=== PATIENT | male | born 1965 | race Two or more races ===

== ENCOUNTER 2017-07-31 14:08 | Inpatient (IN) | payer MEDICAID, OTHER ==
--- NOTE | 2017-07-31 14:24 | EDPHY ---
H & P Stated Complaint: Hypotensive/diabetic Time Seen by Provider: 07/31/17 14:23 HPI/ROS: CHIEF COMPLAINT: Low blood pressure HISTORY OF PRESENT ILLNESS: The patient presents to the emergency department with complaints of low blood pressure for the past several weeks. The patient has a history of hypertension and has been taking lisinopril. The patient also has history of diabetes. He is on metformin and glipizide. The patient complains of vague generalized abdominal pain and anterior chest pain. He states the pain is worsened with palpation. The patient denies fever, cough or congestion. The patient denies any headache, numbness or weakness. REVIEW OF SYSTEMS: A comprehensive 10 point review of systems is otherwise negative aside from elements mentioned in the history of present illness. Source: Patient, Family - Personal History Current Tetanus Diphtheria and Acellular Pertussis (TDAP): Yes - Medical/Surgical History Hx Asthma: No Hx Chronic Respiratory Disease: No Hx Diabetes: Yes Hx Cardiac Disease: No Hx Renal Disease: No Hx Cirrhosis: No Hx Alcoholism: No Hx HIV/AIDS: No Hx Splenectomy or Spleen Trauma: No Other PMH: diabetic - Social History Smoking Status: Current every day smoker - Physical Exam Exam: General Appearance: Alert, no distress Eyes: Pupils equal and round no pallor or injection ENT, Mouth: Dry mucous membranes Respiratory: There are no retractions, lungs are clear to auscultation, tenderness to palpation anterior chest wall predominantly over the costochondral area Cardiovascular: Regular rate and rhythm Gastrointestinal: Abdomen is soft and nontender, no masses, bowel sounds normal Neurological: A&O, normal motor function, normal sensory exam, normal cranial nerves Skin: Warm and dry, no rashes Musculoskeletal: Neck is supple nontender Extremities: symmetrical, full range of motion Constitutional: Initial Vital Signs Temperature (C) 36.4 C 07/31/17 14:10 Heart Rate 106 H 07/31/17 14:10 Respiratory Rate 18 07/31/17 14:10 Blood Pressure 82/58 L 07/31/17 14:10 O2 Sat (%) 94 07/31/17 14:10 O2 Delivery Mode Room Air Allergies/Adverse Reactions: No Known Allergies Allergy (Verified 07/31/17 14:09) Home Medications: Medication Instructions Recorded Lisinopril [Zestril 10 mg (RX)] 10 mg PO DAILY 04/28/12 Magnesium Cit Solution Prepack 1 btl TAKEHOME ONCE #0 btl 04/28/12 Pantoprazole Sodium [Protonix 40mg 40 mg PO DAILY #30 tab 04/28/12 (RX)] glipiZIDE XL [Glucotrol XL 10 MG 10 mg PO DAILY 04/28/12 (RX)] metFORMIN SR [Glucophage XR 500 mg 500 mg PO DAILY@1800 04/28/12 (RX)] Medical Decision Making - Diagnostics EKG Interpretation: EKG: Complete interpretation has been separately recorded in the [facility] archive. Summary impression: Sinus rhythm, rate 96 Imaging Results: Imaging Impressions Chest X-Ray 07/31/17 14:46 Impression: No acute pulmonary disease. ED Course/Re-evaluation: I spoke with Dc. They report his last creatinine was 1.6 on 06/03/17 and he has been on 2.5 mg of lisinopril for sometime. The patient was noted to have no evidence of urinary retention on bladder scanning. The patient had an IV established. He received 1 L of normal saline. Renal ultrasound has been ordered. The patient will be admitted to the hospital. He has no evidence of hyperkalemia. Consultation is made with Dr. Kaplan from the hospitalist service. Discussion: The patient presents to the ED with low blood pressure and elevated creatinine in the setting of ELIN-inhibitor use. The patient is afebrile, nontoxic and well-appearing. The patient's blood pressure did improve with IV fluids. It is currently 116/78 at 4:00 p.m.. The patient will be admitted to the hospital for further evaluation and management. He has no evidence of hyperkalemia or arrhythmia. Differential Diagnosis: Differential diagnosis considered includes renal failure, hyperkalemia, dehydration, metabolic abnormality - Data Points Laboratory Results: Laboratory Results 07/31/17 14:40 07/31/17 14:40 07/31/17 07/31/17 07/31/17 14:45 14:40 14:40 WBC 10.34 10^3/uL H 10^3/uL (3.80-9.50) RBC 5.10 10^6/uL 10^6/uL (4.40-6.38) Hgb 16.3 g/dL g/dL (13.7-17.5) Hct 45.9 % % (40.0-51.0) MCV 90.0 fL fL (81.5-99.8) MCH 32.0 pg pg (27.9-34.1) MCHC 35.5 g/dL g/dL (32.4-36.7) RDW 13.3 % % (11.5-15.2) Plt Count 305 10^3/uL 10^3/uL (150-400) MPV 9.7 fL fL (8.7-11.7) Neut % (Auto) 65.3 % % (39.3-74.2) Lymph % (Auto) 25.3 % % (15.0-45.0) Morris % (Auto) 7.3 % % (4.5-13.0) Eos % (Auto) 0.9 % % (0.6-7.6) Baso % (Auto) 0.7 % % (0.3-1.7) Nucleat RBC Rel Count 0.0 % % (0.0-0.2) Absolute Neuts (auto) 6.76 10^3/uL H 10^3/uL (1.70-6.50) Absolute Lymphs (auto) 2.62 10^3/uL 10^3/uL (1.00-3.00) Absolute Monos (auto) 0.75 10^3/uL 10^3/uL (0.30-0.80) Absolute Eos (auto) 0.09 10^3/uL 10^3/uL (0.03-0.40) Absolute Basos (auto) 0.07 10^3/uL 10^3/uL (0.02-0.10) Absolute Nucleated RBC 0.00 10^3/uL 10^3/uL (0-0.01) Immature Gran % 0.5 % % (0.0-1.1) Immature Gran # 0.05 10^3/uL 10^3/uL (0.00-0.10) Sodium 142 mEq/L mEq/L (135-145) Potassium 4.3 mEq/L mEq/L (3.3-5.0) Chloride 96 mEq/L L mEq/L (97-110) Carbon Dioxide 28 mEq/l mEq/l (22-31) Anion Gap 18 mEq/L H mEq/L (8-16) BUN 50 mg/dL H mg/dL (7-23) Creatinine 3.6 mg/dL H mg/dL (0.7-1.3) Estimated GFR 18 Glucose 76 mg/dL mg/dL (70-100) POC Glucose 69 mg/dL L mg/dL (70-100) Calcium 9.6 mg/dL mg/dL (8.5-10.4) Total Bilirubin 0.7 mg/dL mg/dL (0.1-1.4) Conjugated Bilirubin 0.5 mg/dL mg/dL (0.0-0.5) Unconjugated Bilirubin 0.2 mg/dL mg/dL (0.0-1.1) AST 16 IU/L L IU/L (17-59) ALT 26 IU/L IU/L (21-72) Alkaline Phosphatase 79 IU/L IU/L (38-126) Troponin I < 0.012 ng/mL ng/mL (0.000-0.034) Total Protein 7.4 g/dL g/dL (6.3-8.2) Albumin 4.4 g/dL g/dL (3.5-5.0) Lipase 530 IU/L H IU/L (23-300) Medications Given: Discontinued Medications Sodium Chloride (Ns) 1,000 mls @ 0 mls/hr IV ONCE ONE PRN Reason: Wide Open Stop: 07/31/17 14:51 Last Admin: 07/31/17 14:51 Dose: 1,000 mls Point of Care Test Results: 07/31/17 14:45 POC Glucose 69 L Departure - Departure Disposition: [facility] Inpatient Acute Clinical Impression: Acute renal failure Condition: Good Referrals: Rishi Munguia MD [Primary Care Provider] - As per Instructions
--- NOTE | 2017-07-31 14:43 | CPEKG ---
Heart Rate: 96 RR Interval: 625 P-R Interval: 116 QRSD Interval: 88 QT Interval: 348 QTC Interval: 440 P [place]: 51 QRS [place]: 51 T Wave [place]: 34 EKG Severity - NORMAL ECG - EKG Impression: SINUS RHYTHM Electronically Signed By: Dain Kumari 31-Jul-2017 14:57:17
[2017-07-31] MEDS ORDERED: NS 1,000 ML IV ONE (14:50)
[2017-07-31 14:52] LABS: PLATELET COUNT 305 10^3/uL (150-400)
[2017-07-31] MEDS ORDERED: ACETAMINOPHEN 325 MG TAB PO PRN (17:02)
[2017-07-31] MEDS: NS 1,000 ML IV SCH (17:36)
[2017-07-31] MEDS ORDERED: D50W 25 GM/50 ML SYR IVP PRN (17:48)
--- NOTE | 2017-07-31 18:18 | GHP ---
[f rep st] HISTORY AND PHYSICAL DATE OF ADMISSION: 07/31/2017 PRIMARY CARE PROVIDER: [facility]. CHIEF COMPLAINT: Low blood pressures and lightheadedness. HISTORY OF PRESENT ILLNESS: The patient is a pleasant 52-year-old gentleman with a past medical hist ory of diabetes mellitus type 2, who [facility] by one of his coworkers after showed up to work today and was unsteady and complaining of lightheaded ness. Upon arrival to the emergency room, his blood pressure reading was 82/58, and his blood work w as notable for elevated creatinine at 3.6. Dr. Kumari in the emergency room made contact with the [facility] and they had stated that his creatinine was recently measured at 1.4. It sounds like donna maya had some elevated creatinines in the past in the mid 2 range. He is not under the care of a nephro logist at the current time. The patient states he has had intermittent symptoms like today throughou t the years, but he says over the past 2-3 weeks has been fairly persistent. I am not entirely sure if the lisinopril that he takes on a daily basis is for hypertension or possibly related for protecti ve effects on the kidneys. It does sound like the dose has been gradually decreased over the prior m onths due to his complaints of lightheadedness. Otherwise, no complaints of chest pain or difficulty breathing. PAST MEDICAL HISTORY: Diabetes mellitus type 2, uncertain control. PAST SURGICAL HISTORY: Appendectomy. MEDICATIONS: 1. Metformin XR 500 mg daily. 2. Glipizide XL 10 mg daily. 3. Lisinopril 10 mg daily, but it sounds that this has been decreased to 2.5 mg daily of recent. 4. Pantoprazole 40 mg daily. ALLERGIES: No known drug allergies. FAMILY HISTORY: Father . He in a motor vehicle accident. Mother is currently living. SOCIAL HISTORY: The patient is . He has 4 children. He is a current smoker and declines a nicotine patch at this time. He typically has 2-3 beers in the evening time after work. Contact per son or [id number] would be his daughter, who is present at the bedside today. REVIEW OF SYSTEMS: CONSTITUTIONAL: No complaints of any fevers or chills. ENT: No recent upper re spiratory illnesses. CARDIOVASCULAR: No complaints of any chest pains, palpitations, or syncopal ep isodes. RESPIRATORY: No complaints of shortness of breath or productive cough. GI: No complaints of abdominal pains, nausea, vomiting, diarrhea, or constipation. : The patient states he typicall y urinates about once a day. He typically does not need to urinate at all throughout the nighttime. NEUROLOGIC: No complaints of any headaches or focal weakness. HEMATOLOGIC: No deep vein thrombosi s or pulmonary embolism history. PSYCHIATRIC: No history of anxiety or depression. ENDOCRINE: No history of polyuria or heat intolerance. SKIN: No new skin rashes. MUSCULOSKELETAL: No focal join t pains. PHYSICAL EXAM: VITAL SIGNS: Temperature 36.7, blood pressure 82/58, heart rate 106, respirations 18 , saturating 96% on room air. GENERAL: Patient appears comfortable. He is awake, alert, conversant , in no acute distress. HEENT: Extraocular movements appear intact. No scleral icterus is noted. NECK: Supple. No thyroid enlargement noted. CHEST: Clear to auscultation with normal respiratory effort. HEART: Regular rate and rhythm. No murmurs noted. ABDOMEN: Soft, nontender, nondistended . : No Schroeder catheter in place. EXTREMITIES: No significant pitting edema. NEUROLOGIC: Crania l nerves 2-12 appear grossly intact with 5/5 strength in all extremities. LABS: White blood cell count is 10, hemoglobin 16, platelets 305. Sodium 142, potassium 4.3, chlori de 96, bicarb 28, BUN 50, creatinine 3.6, glucose 76, AST 16, ALT 26, alkaline phosphatase 79, biliru bin is 0.7. Troponin less than 0.012. Lipase 530. Total protein is 7.4. IMAGIN. Chest x-ray: No acute cardiopulmonary disease. 2. Abdominal ultrasound: No hydronephrosis seen. No renal atrophy noted. 3. ECG: Normal sinus rhythm. 4. Urinalysis: Unremarkable. ASSESSMENT/PLAN: 1. Acute kidney injury, suspecting a prerenal etiology, likely a combination of hypotension secondar y to ELIN inhibitor as well as volume depletion from low oral intake. The patient states he does not drink a lot of water throughout the day. He may have some degree of chronic kidney disease as he has had elevated creatinines in the past in the 1 to mid 2 ranges. We will hold lisinopril. Continue i ntravenous fluids overnight and reassess creatinine in the morning. 2. Hypotension. I am uncertain if he is actually hypertensive as lisinopril may be being used for r enal protective effects. Hold lisinopril indefinitely and follow blood pressures which are improving with IV fluids. 3. Diabetes mellitus type 2. Will prescribe a sliding scale insulin for now. Hold sulfonylurea and metformin in light of the creatinine elevation. We will check a hemoglobin A1c in the morning to as sess control. 4. Deep venous thrombosis prophylaxis. Low risk. Compression devices. 5. Disposition. I will admit him under inpatient status as it may take 2-3 days to normalize his cr eatinine. /[id number]/MODL
[2017-07-31] MEDS: INSULIN REGULAR HUMAN 100 UNIT/ML UNIT SC SCH (21:56)
[2017-08-01] MEDS: NS 1,000 ML IV SCH ×4 (00:04→21:29)
[2017-08-01 04:48] LABS: PLATELET COUNT 231 10^3/uL (150-400)
[2017-08-01] MEDS: INSULIN REGULAR HUMAN 100 UNIT/ML UNIT SC SCH ×4 (08:23→21:27)
--- NOTE | 2017-08-01 11:05 | PDMN ---
Medical Necessity Medical necessity: est los>2mn for LILIANA w/creatinine 3.6, etiology likely hypotension (82/58) r/t ELIN inhibitor & volume depletion ; admit for for IVF, hold Lisinopril, and monitor creatinine; comorbid DM, hx elevated creat; per order and H&P 07/31/17
--- NOTE | 2017-08-01 11:27 | ASMTCMCOM ---
CM Note CM Note Notes: Patient admitted for hypotension and lightheadedness. He has a history of DM II and may have some underlying kidney disease. Patient lives independently and has supportive children nearby. I offered to make him an appointment with his PCP at [facility], Dr Munguia, but he requested a switch to the [facility] provider network. I therefore made him an appt with Dr Cruz at @ Internal Medicine [facility], [address], [place] [address] on Saturday 08/12 @ 0800. No other d/c needs anticipated. Case Management available if this changes. Current CM Discharge plan: home independent, f/u w new PCP Date Signed: 08/01/2017 11:26 AM Electronically Signed By:Kayli Meza RN
--- NOTE | 2017-08-01 12:07 | HOSPPROG ---
Hospitalist Progress Note Assessment/Plan: Patient is a 52-year-old male with a past medical history diabetes type 2 who was brought in to [facility] after he showed up to work and was unsteady and complaining of being lightheaded. In the emergency room his blood pressure was 82/58. Creatinine was elevated at 3.6. Today is my 1st encounter with the patient. Chart reviewed. *Acute kidney injury -much improved w hydration -holding lisinopril and any nephrotoxic agents -ultrasound no hydronephrosis, no renal atrophy noted -due to the hypotensive, pre-renal *DM2 -AIC is 6.5 -sliding scale, hold oral agents *hypoglycemia -occurred during the night multiple times *2 hepatic lesions -will need an ultrasound in 6 months for f/u *hypotension w hx of hypertension -suspect he is still dehydrated *plan : monitor overnight and if stable, dc in the a.m. Subjective: Gallo is feeling better today. Objective: Vital Signs Temp Pulse Resp BP Pulse Ox 36.6 C 72 16 104/69 98 08/01/17 11:40 08/01/17 11:40 08/01/17 11:40 08/01/17 11:40 08/01/17 11:40 Laboratory Results 08/01/17 04:17 08/01/17 04:17 07/31/17 08/01/17 08/02/17 05:59 05:59 05:59 Intake Total 1800 Output Total 500 Balance 1800 -500 - Physical Exam Constitutional: no apparent distress, appears nourished, not in pain Eyes: PERRL Ears, Nose, Mouth, Throat: hearing normal Cardiovascular: regular rate and rhythym Respiratory: no respiratory distress Gastrointestinal: normoactive bowel sounds Skin: warm Musculoskeletal: full muscle strength Neurologic: AAOx3 Psychiatric: interacting appropriately ICD10 Worksheet Patient Problems: Problems Problem Status Onset Acute renal failure Acute
[2017-08-02] MEDS: NS 1,000 ML IV SCH (04:12)
[2017-08-02 07:34] VITALS: BP 120/80
[2017-08-02] MEDS: INSULIN REGULAR HUMAN 100 UNIT/ML UNIT SC SCH (07:35)
[2017-08-02] MEDS ORDERED: ATORVASTATIN CALCIUM 10 MG TAB PO SCH (09:00)
--- NOTE | 2017-08-02 10:53 | ASDISCHSUM ---
Discharge Information Plan Status:Home with No Needs Medically Cleared to Leave:08/02/2017 Discharge Date:08/02/2017 CM D/C Disposition:Home, Routine, Self-Care ADT D/C Disposition:Home, Routine, Self-Care Projected Discharge Date:08/02/2017 Transportation at D/C:Self Discharge Delay Reason: Follow-Up Date:08/02/2017 Discharge Slot: Final Diagnosis: Placement Information Patient Contact Information Contact Name:WESTON Relationship:Daughter Address: Work Phone: City: [facility] Phone: State/[place] Code: Email: Financial Information Financial Class:Medicaid Primary Plan Desc:[employer] Primary Plan Number:[id number] Secondary Plan Desc: Secondary Plan Number: Assessment Information LACE LACE Length of stay for Answers: 2 days current admission Acuity / Level of Answers: Yes Care: Did the patient have an inpatient admission? Comorbidities - select Answers: Diabetes (uncontrolled or all that apply controlled) # of Emergency department Answers: 1-2 visits in the last 6 months Score: 7 Date Signed: 08/02/2017 10:50 AM Electronically Signed By:ALEXIS Pruitt [facility] CM Progress Note CM Note CM Note Notes: Patient admitted for hypotension and lightheadedness. He has a history of DM II and may have some underlying kidney disease. Patient lives independently and has supportive children nearby. I offered to make him an appointment with his PCP at [facility], Dr Munguia, but he requested a switch to the [facility] provider network. I therefore made him an appt with Dr Cruz at @ Internal Medicine [facility], [facility] [address], [place] [address] on Saturday 08/12 @ 0800. No other d/c needs anticipated. Case Management available if this changes. Current CM Discharge plan: home independent, f/u [facility] Date Signed: 08/01/2017 11:26 AM Electronically Signed By:Kayli Meza RN Intervention Information
--- NOTE | 2017-08-02 13:45 | GDS ---
[f rep st] DISCHARGE SUMMARY DISCHARGE DIAGNOSES: 1. Acute renal failure. 2. Diabetes mellitus. 3. Weakness. 4. Hypoglycemia. 5. Hepatic lesions. 6. Hypotension. STUDIES AND PROCEDURES: 1. Chest x-ray. 2. Abdominal ultrasound. PHYSICAL EXAM: GENERAL: The patient is alert. VITAL SIGNS: Afebrile at 36.5, pulse 67, respirator y rate 16, blood pressure is 120/80, saturating 97% on room air. I have seen and evaluated the patient on the day of discharge. HOSPITAL COURSE: The patient is a 52-year-old male who presented to the emergency room with complain ts of weakness and dizziness. He was evaluated and diagnosed with: 1. Acute kidney injury. This in the setting of dehydration as well as metformin and lisinopril tobias stion. The patient has responded to IV hydration. His renal function has completely returned to nor mal. He did have an ultrasound that demonstrated no hydronephrosis and no atrophy. It is felt that his acute kidney injury is secondary to prerenal condition. 2. Diabetes mellitus type 2. His hemoglobin A1c is 6.5. His metformin has been discontinued in the setting of his acute kidney injury, and he will follow up in the outpatient setting. 3. Hypoglycemia. This appears to be stable. 4. Hepatic lesions. The patient had 2 incidental hepatic lesions noted on ultrasound. It was recom mended he follow up in 6 months with a repeat ultrasound. 5. Hypotension. This is in the setting of dehydration. He has responded well to IV fluids. His pr eviously prescribed renal dose lisinopril has been discontinued. 6. Disposition: The patient will be discharged home independently. I have discussed the patient's disposition with Case Management. A followup appointment has been made with Dr. Cruz in the outpat [facility] setting. He will follow up on 08/12/2017, at 8:00 am. DISCHARGE MEDICATIONS: Please refer to EMR form. I have discontinued the patient's previously presc ribed home metformin as well as his lisinopril and his Amaryl. He is to remain off these medications until further evaluated in the outpatient setting by primary care physician. I have discussed the d ischarge with the patient's nurse. I spent greater than 35 minutes in the care, coordination, and ma nagement of this patient's disposition and outpatient followup. /[id number]/MODL
== END 2017-08-02 11:09 | disposition home or self-care (01) | DRG 422 ==
LOC: F3E 16:54 → OBSVTOIN 17:03
PROVIDERS: ADMIT Internal Medicine; ATTEND Internal Medicine
DX: E86.0 Dehydration (principal); I95.2 Hypotension due to drugs; N17.9 Acute kidney failure, unspecified; T46.4X5A Adverse effect of angiotensin-converting-enzyme inhibitors, initial encounter; E11.649 Type 2 diabetes mellitus with hypoglycemia without coma; T38.3X5A Adverse effect of insulin and oral hypoglycemic [antidiabetic] drugs, initial encounter; K76.9 Liver disease, unspecified
CPT/HCPCS: J1815

== ENCOUNTER → 2018-04-17 | Outpatient (CLI) | payer MEDICAID | LOC: FIMAGING 18:28 | PROVIDERS: ATTEND Internal Medicine | DX: M48.02 Spinal stenosis, cervical region (principal); M50.022 Cervical disc disorder at C5-C6 level with myelopathy; R90.89 Other abnormal findings on diagnostic imaging of central nervous system ==